=== PATIENT | male | born 2000 | race Hispanic/Latino ===

== ENCOUNTER 2021-07-03 12:44 | Emergency (ER) | payer MEDICAID ==
[~2021-07-03] VITALS: Ht 167.6 cm; Wt 89.8 kg
[2021-07-03 12:46] VITALS: BP 124/76
[2021-07-03] MEDS ORDERED: DSSL PO (13:20)
== END 2021-07-03 13:43 | disposition home or self-care (01) ==
LOC: EDH 12:44
DX: H61.23 Impacted cerumen, bilateral (principal)